=== PATIENT | female | born 1970 | race Caucasian/White ===

== ENCOUNTER 2017-07-28 16:08 | Inpatient (IN) | payer BC ==
[~2017-07-28] VITALS: Ht 152.4 cm; Wt 83.1 kg
[2017-07-28 16:13] VITALS: Ht 152.4 cm; Wt 83.1 kg
[2017-07-28 17:05] LABS: BASOPHIL % 0.4 % (0-2); PLATELET COUNT 262 x10^3mcL (130-400); RED CELL DISTRIBUTION WIDTH 13.9 % (11.5-14.5)
[2017-07-28 17:16] LABS: microscopic required? NO
[2017-07-28 17:19] LABS: ALBUMIN 3.5 g/dL (3.4-5.0); ALKALINE PHOSPHATASE 195 U/L (46-116); ALT/SGPT 157 U/L (14-59); AST/SGOT 124 U/L (15-37); BILIRUBIN TOTAL 0.27 mg/dL (0.20-1.00); CALCIUM 8.6 mg/dL (8.5-10.1); CHLORIDE SERUM 97 mmol/L (98-107); GFR1 > 60 mL/min; POTASSIUM SERUM 4.4 mmol/L (3.5-5.1); SODIUM SERUM 131 mmol/L (136-145); TOTAL PROTEIN, SERUM 7.4 g/dL (6.4-8.2)
[2017-07-28 17:28] LABS: UA SPECIFIC GRAVITY <=1.005 (1.005-1.035); urine erythrocyte NEGATIVE (NEGATIVE)
[2017-07-28] MEDS ORDERED: SYNTHROID0.05 MG PO (18:17)
[2017-07-28 19:03] VITALS: BP 150/93
[2017-07-28 19:25] LABS: PHOSPHOROUS 3.1 mg/dL (2.5-4.9)
[2017-07-28 19:26] LABS: AMPHETAMINE QUAL UR NONE DETECTED (NEG <=1000)
[2017-07-28 19:29] LABS: T3 TOTAL 1.07 ng/mL
[2017-07-28 19:44] LABS: FREE T4 1.29 ng/dL (0.76-1.46); FREE THYROXINE INDEX 3.7 ug/dL (1.4-4.5); T4(THYROXINE) 11.2 ug/dL (4.7-13.3)
[2017-07-28 21:21] VITALS: BP 147/79
[2017-07-29 05:40] VITALS: BP 128/70
[2017-07-29 05:53] LABS: BASOPHIL % 0.4 % (0-2); PLATELET COUNT 230 x10^3mcL (130-400); RED CELL DISTRIBUTION WIDTH 14.1 % (11.5-14.5)
[2017-07-29 06:23] LABS: CALCIUM 8.3 mg/dL (8.5-10.1); CARBON DIOXIDE 27.9 mmol/L (21-32); CHLORIDE SERUM 104 mmol/L (98-107); CREATININE SERUM 0.5 mg/dL (0.6-1.0); GFR1 > 60 mL/min; GLUCOSE SERUM 258 mg/dL (74-106); PHOSPHOROUS 3.7 mg/dL (2.5-4.9); SODIUM SERUM 138 mmol/L (136-145)
[2017-07-29 09:19] VITALS: BP 136/74
[2017-07-29 12:59] VITALS: BP 138/78
[2017-07-29 17:24] VITALS: BP 144/86
[2017-07-29 20:54] VITALS: BP 131/81
[2017-07-30 05:45] VITALS: BP 130/79
[2017-07-30 06:29] LABS: BASOPHIL % 0.4 % (0-2); PLATELET COUNT 236 x10^3mcL (130-400); RED CELL DISTRIBUTION WIDTH 14.4 % (11.5-14.5)
[2017-07-30 06:33] LABS: CALCIUM 8.4 mg/dL (8.5-10.1); CARBON DIOXIDE 27.2 mmol/L (21-32); CHLORIDE SERUM 103 mmol/L (98-107); CREATININE SERUM 0.6 mg/dL (0.6-1.0); GFR1 > 60 mL/min; GLUCOSE SERUM 213 mg/dL (74-106); MAGNESIUM 1.8 mg/dL (1.8-2.4); PHOSPHOROUS 4.1 mg/dL (2.5-4.9); POTASSIUM SERUM 4.4 mmol/L (3.5-5.1); SODIUM SERUM 140 mmol/L (136-145)
[2017-07-30 09:56] VITALS: BP 129/75
[2017-07-30 21:11] VITALS: BP 133/84
[2017-07-31 05:58] VITALS: BP 128/77
[2017-07-31 06:33] LABS: CALCIUM 8.7 mg/dL (8.5-10.1); CARBON DIOXIDE 26.9 mmol/L (21-32); CHLORIDE SERUM 104 mmol/L (98-107); CREATININE SERUM 0.6 mg/dL (0.6-1.0); GFR1 > 60 mL/min; GLUCOSE SERUM 164 mg/dL (74-106); MAGNESIUM 1.8 mg/dL (1.8-2.4); PHOSPHOROUS 4.9 mg/dL (2.5-4.9); SODIUM SERUM 138 mmol/L (136-145)
[2017-07-31] MEDS ORDERED: BG FS (09:21)
[2017-07-31] MEDS ORDERED: LIPI20 PO (09:21)
[2017-07-31] MEDS ORDERED: METFORMIN HCL1000 MG PO (09:21)
[2017-07-31] MEDS ORDERED: LEVEMIR100 U/M1 SQ (09:23)
[2017-07-31] MEDS ORDERED: BLOOD GLUCOSE MC (09:24)
[2017-07-31] MEDS ORDERED: BLOOD LANCETS1 EACH MC (09:26)
[2017-07-31 09:49] VITALS: BP 129/72
[2017-07-31 11:23] VITALS: BP 129/72
[2017-07-31 13:24] VITALS: BP 145/76
== END 2017-07-31 13:53 | disposition home or self-care (01) | DRG 637 ==
LOC: ED 16:08 → DU 18:02 → MU 07-29 15:26
PROVIDERS: Emergency Medicine; Family Medicine
DX: E11.65 Type 2 diabetes mellitus with hyperglycemia (principal); N17.0 Acute kidney failure with tubular necrosis; E87.1 Hypo-osmolality and hyponatremia; E03.9 Hypothyroidism, unspecified; E66.9 Obesity, unspecified; K76.0 Fatty (change of) liver, not elsewhere classified; Z68.37 Body mass index [BMI] 37.0-37.9, adult
CPT/HCPCS: 36600; 82962; 83880; 84439; J1815; J7030; J8597; Q0092; Q0162

== ENCOUNTER 2017-09-21 08:24 | Emergency (ER) | payer BC ==
[~2017-09-21] VITALS: Ht 152.4 cm; Wt 81.6 kg
[~2017-09-21 08:24] MED LIST: BG FS; BLOOD GLUCOSE MC; BLOOD LANCETS1 EACH MC; LEVEMIR100 U/M1 SQ; LIPI20 PO; METFORMIN HCL1000 MG PO; SYNTHROID0.05 MG PO
[2017-09-21 08:31] VITALS: Ht 152.4 cm; Wt 81.6 kg
[2017-09-21 10:31] VITALS: BP 132/88
== END 2017-09-21 10:22 | disposition left against medical advice (07) ==
LOC: ED 08:24
DX: Z53.21 Procedure and treatment not carried out due to patient leaving prior to being seen by health care provider (principal)

== ENCOUNTER 2018-02-20 06:49 | Inpatient (IN) | payer BC ==
[~2018-02-20] VITALS: Ht 152.4 cm; Wt 85.5 kg
[2018-02-20 06:54] VITALS: Ht 152.4 cm; Wt 85.5 kg
[2018-02-20 07:19] LABS: BASOPHIL % 0.5 % (0-2); PLATELET COUNT 248 x10^3mcL (130-400); RED CELL DISTRIBUTION WIDTH 13.6 % (11.5-14.5)
[2018-02-20 07:28] LABS: CALCIUM 9.3 mg/dL (8.5-10.1); CARBON DIOXIDE 25.7 mmol/L (21-32); CHLORIDE SERUM 100 mmol/L (98-107); CREATININE SERUM 0.7 mg/dL (0.6-1.0); GFR1 > 60 mL/min; GLUCOSE SERUM 227 mg/dL (74-106); SODIUM SERUM 136 mmol/L (136-145)
[2018-02-20 07:31] LABS: ALBUMIN 3.5 g/dL (3.4-5.0); ALKALINE PHOSPHATASE 149 U/L (46-116); ALT/SGPT 129 U/L (14-59); AST/SGOT 82 U/L (15-37); BILIRUBIN TOTAL 0.5 mg/dL (0.20-1.00); LIPASE 105 IU/L (73-393); TOTAL PROTEIN, SERUM 8.1 g/dL (6.4-8.2)
[2018-02-20 09:14] LABS: microscopic required? YES; urine erythrocyte NEGATIVE (NEGATIVE)
[2018-02-20 14:37] LABS: MAGNESIUM 1.9 mg/dL (1.8-2.4); PHOSPHOROUS 3.9 mg/dL (2.5-4.9)
[2018-02-20 14:47] LABS: T3 TOTAL 1.35 ng/mL
[2018-02-20 14:49] VITALS: BP 136/83
[2018-02-20 14:49] LABS: FREE T4 1.21 ng/dL (0.76-1.46); FREE THYROXINE INDEX 3.1 ug/dL (1.4-4.5); T4(THYROXINE) 11.4 ug/dL (4.7-13.3)
[2018-02-20 18:38] VITALS: BP 144/83; BP 163/64
[2018-02-20 20:40] VITALS: BP 141/86
[2018-02-21 05:29] VITALS: BP 123/76
[2018-02-21 06:52] LABS: BASOPHIL % 0.3 % (0-2); PLATELET COUNT 210 x10^3mcL (130-400); RED CELL DISTRIBUTION WIDTH 13.9 % (11.5-14.5)
[2018-02-21 06:55] LABS: CALCIUM 8.6 mg/dL (8.5-10.1); CARBON DIOXIDE 26.5 mmol/L (21-32); CHLORIDE SERUM 101 mmol/L (98-107); CREATININE SERUM 0.8 mg/dL (0.6-1.0); GFR1 > 60 mL/min; GLUCOSE SERUM 222 mg/dL (74-106); SODIUM SERUM 137 mmol/L (136-145)
[2018-02-21 07:31] LABS: BILIRUBIN DIRECT 0.09 mg/dL (0.0-0.2); BILIRUBIN TOTAL 0.31 mg/dL (0.20-1.00); TOTAL PROTEIN, SERUM 7.3 g/dL (6.4-8.2)
[2018-02-21 09:00] VITALS: BP 125/70
[2018-02-21 10:54] VITALS: BP 115/76
[2018-02-21 14:10] VITALS: BP 130/78
[2018-02-21 17:36] VITALS: BP 117/72
[2018-02-21 21:04] VITALS: BP 122/77
[2018-02-22 05:32] VITALS: BP 143/92
[2018-02-22 09:30] VITALS: BP 128/45
[2018-02-22] MEDS ORDERED: AMO500 PO (16:00)
[2018-02-22] MEDS ORDERED: BIA500 PO (16:00)
[2018-02-22] MEDS ORDERED: PROTONIX40 MG PO (16:01)
[2018-02-22 16:12] VITALS: BP 128/45
== END 2018-02-22 16:40 | disposition home or self-care (01) | DRG 379 ==
LOC: ED 06:49 → DU 12:11 → MU 12:11 → DU 14:30
PROVIDERS: Emergency Medicine; Internal Medicine; Internal Medicine Gastroenterology
PROC: 0DB68ZX Excision of Stomach, Via Natural or Artificial Opening Endoscopic, Diagnostic (ICD-10-PCS; principal; 2018-02-21 09:30)
DX: K29.71 Gastritis, unspecified, with bleeding (principal); B96.81 Helicobacter pylori [H. pylori] as the cause of diseases classified elsewhere; R07.89 Other chest pain; E11.65 Type 2 diabetes mellitus with hyperglycemia; E78.5 Hyperlipidemia, unspecified; E03.9 Hypothyroidism, unspecified; E66.9 Obesity, unspecified; Z88.8 Allergy status to other drugs, medicaments and biological substances; Z68.36 Body mass index [BMI] 36.0-36.9, adult
CPT/HCPCS: 43235; 82962; 84439; A9500; C9113; J1200; J1610; J1815; J1885; J2250; J2310; J2405; J2765; J2785; J3010; J3490; J7030; Q0092

== ENCOUNTER 2018-10-02 01:47 | Emergency (ER) | payer MEDICAID ==
[~2018-10-02] VITALS: Ht 152.4 cm; Wt 81.6 kg
[~2018-10-02 01:47] MED LIST changes: +AMO500 PO; +BIA500 PO; +PROTONIX40 MG PO
[2018-10-02 01:55] VITALS: Ht 152.4 cm; Wt 81.6 kg
[2018-10-02 02:43] LABS: BASOPHIL % 0.4 % (0-2); PLATELET COUNT 248 x10^3mcL (130-400); RED CELL DISTRIBUTION WIDTH 12.2 % (11.5-14.5)
[2018-10-02 03:04] LABS: ALBUMIN 3.4 g/dL (3.4-5.0); ALKALINE PHOSPHATASE 224 U/L (46-116); ALT/SGPT 106 U/L (14-59); AST/SGOT 53 U/L (15-37); BILIRUBIN TOTAL 0.43 mg/dL (0.20-1.00); CALCIUM 9.7 mg/dL (8.5-10.1); CARBON DIOXIDE 29.2 mmol/L (21-32); CHLORIDE SERUM 100 mmol/L (98-107); CREATININE SERUM 0.7 mg/dL (0.6-1.0); GFR1 > 60 mL/min; LIPASE 95 IU/L (73-393); SODIUM SERUM 139 mmol/L (136-145); TOTAL PROTEIN, SERUM 7.4 g/dL (6.4-8.2)
[2018-10-02 03:07] LABS: GLUCOSE SERUM 452 mg/dL (74-106)
[2018-10-02 04:55] VITALS: BP 121/65
== END 2018-10-02 04:55 | disposition home or self-care (01) ==
LOC: ED 01:47
PROVIDERS: Emergency Medicine
DX: K59.00 Constipation, unspecified (principal); E11.65 Type 2 diabetes mellitus with hyperglycemia; E86.0 Dehydration; Z88.5 Allergy status to narcotic agent
CPT/HCPCS: 82962; J1815; J1885; J2405; J7030

== ENCOUNTER 2019-03-08 20:21 | Emergency (ER) | payer MEDICAID ==
[~2019-03-08] VITALS: Ht 152.4 cm; Wt 83.0 kg
[2019-03-08 20:31] VITALS: Ht 152.4 cm; Wt 83.0 kg
[2019-03-08 21:08] LABS: CALCIUM 8.9 mg/dL (8.5-10.1); CARBON DIOXIDE 28.5 mmol/L (21-32); CHLORIDE SERUM 100 mmol/L (98-107); CREATININE SERUM 0.6 mg/dL (0.6-1.0); GFR1 > 60 mL/min; GLUCOSE SERUM 204 mg/dL (74-106); SODIUM SERUM 138 mmol/L (136-145)
[2019-03-08 21:10] LABS: BASOPHIL % 0.3 % (0-2); PLATELET COUNT 274 x10^3mcL (130-400); RED CELL DISTRIBUTION WIDTH 12.6 % (11.5-14.5)
[2019-03-08 21:13] LABS: ALBUMIN 3.7 g/dL (3.4-5.0); ALKALINE PHOSPHATASE 159 U/L (46-116); ALT/SGPT 209 U/L (14-59); AST/SGOT 135 U/L (15-37); BILIRUBIN TOTAL 0.53 mg/dL (0.20-1.00); LIPASE 154 IU/L (73-393)
[2019-03-08 23:08] LABS: microscopic required? NO
[2019-03-08 23:46] LABS: UA SPECIFIC GRAVITY 1.015 (1.005-1.035); urine erythrocyte NEGATIVE (NEGATIVE)
[2019-03-09 02:27] VITALS: BP 103/48
== END 2019-03-09 02:27 | disposition home or self-care (01) ==
LOC: ED 20:21
PROVIDERS: Emergency Medicine
DX: R10.13 Epigastric pain (principal); R11.10 Vomiting, unspecified; E11.9 Type 2 diabetes mellitus without complications; Z88.5 Allergy status to narcotic agent; Z98.890 Other specified postprocedural states
CPT/HCPCS: J1885; J2270; J2405; J7030; Q0092